=== PATIENT | male | born 1995 | race African-American/Black ===

== ENCOUNTER 2016-09-18 14:34 | Emergency (ER) | payer MEDICAID ==
[~2016-09-18] VITALS: Ht 170.2 cm; Wt 100.0 kg
[~2016-09-18 14:34] MED LIST: LORTA5 PO; Z.0.NO CURRENT MEDS
[2016-09-18 14:35] VITALS: BP 127/58; PULSE 68; RESP 15; TEMP 98.2; O2SAT 98
[2016-09-18] MEDS ORDERED: IBUPROFEN 800 MG TAB PO ONE (15:00)
--- NOTE | 2016-09-18 15:10 | PD ---
HPI . Left knee pain Chief Complaint: Injury Time Seen by Provider: 14:51 Travel History International Travel<30 days: No Contact w/Intl Traveler<30days: No Traveled to known affect area: No History of Present Illness HPI 20-year-old male with no significant past medical history here with complaints of left knee pain. Patient was at work yesterday when he was working with a electric pallet khalif that sharply jerked him, causing him to hyperextend his left knee. Patient continued working and completed his shift. He had some pain at that point, but it was not significant. He additionally went to work today and completed another shift and is now complaining of pain in the left knee rated as 7/10 without any radiation. Patient describes the pain as "mushy. " He also tells me that it's very tender to touch. It is slightly edematous. No obvious deformity. He has full range of motion of this joint. He has no other complaints. He did not injure his head. [facility] Past Medical History Medical History: Denies Significant Hx Diminished Hearing: No Immunizations Current: Yes Past Surgical History Appendectomy: Yes Social History Alcohol Use: No Tobacco Use: No Substance Use: No Allergies-Medications (Allergen,Severity, Reaction): Coded Allergies: No Known Allergies (Verified , 09/18/16) Reported Meds & Prescriptions Reported Meds & Active Scripts Active Ibuprofen 800 Mg Tab 800 Mg PO TID Review of Systems General / Constitutional: No: Fever Eyes: No: Visual changes HENT: No: Headaches Cardiovascular: No: Chest Pain or Discomfort Respiratory: No: Shortness of Breath Gastrointestinal: No: Abdominal Pain Genitourinary: No: Dysuria Musculoskeletal: Positive: Pain (left knee pain) Skin: No Rash Neurologic: No: Weakness Psychiatric: No: Depression Endocrine: No: Polydipsia Hematologic/Lymphatic: No: Easy Bruising Physical Exam Narrative GENERAL: AAO x 3, no acute distress, Well-nourished, well-developed patient. SKIN: Warm and dry. No visible rashes or bruising. HEAD: Normocephalic and atraumatic. EYES: No scleral icterus. No injection or drainage. ENT: No nasal drainage noted. Airway patent. NECK: Supple, trachea midline. No JVD. CARDIOVASCULAR: Regular rate and rhythm without murmurs, gallops, or rubs. RESPIRATORY: Breath sounds equal bilaterally. No accessory muscle use. No rhonchi or rales. GASTROINTESTINAL: Visual inspection is normal EXTREMITIES: No cyanosis. Very minimal edema to the left knee. There is no ecchymosis. There is tenderness to the patella and pain elicited with valgus and varus stress testing. Extension and flexion is normal. BACK: Nontender without obvious deformity. No CVA tenderness. PSYCH: AAO x 3, normal affect. Data Data Last Documented VS Vital Signs Date Time Temp Pulse Resp B/P Pulse Ox O2 Delivery O2 Flow Rate FiO2 09/18/16 16:08 98.1 67 16 118/67 99 09/18/16 14:52 Room Air Orders Knee, Complete (4vws) (09/18/16 14:56) Ibuprofen (Motrin) (09/18/16 15:00) ^ Luis Manuel Bandage (09/18/16 15:53) Crutches (09/18/16 15:53) MDM Medical Decision Making Medical Screen Exam Complete: Yes Emergency Medical Condition: Yes Medical Record Reviewed: Yes Differential Diagnosis knee sprain, meniscal injury, less likely knee fracture Narrative Course 20-year-old male with no significant past medical history here with complaints of left knee pain. Patient was at work yesterday when he was working with a electric pallet khalif that sharply jerked him, causing him to hyperextend his left knee. Patient continued working and completed his shift. He had some pain at that point, but it was not significant. He additionally went to work today and completed another shift and is now complaining of pain in the left knee rated as 7/10 without any radiation. Patient describes the pain as "mushy. " He also tells me that it's very tender to touch. It is slightly edematous. No obvious deformity. He has full range of motion of this joint. He has no other complaints. He did not injure his head. Patient seen and examined. He does have some point tenderness over his patella as well as pain with valgus and varus stress testing. I'll go ahead and order an x-ray to rule out any type of bony abnormality, however I doubt that we will find any acute fracture. It is possible the patient has a meniscal injury. I've explained that he will need to have outpatient follow-up regarding this injury. xray negative. Luis Manuel wrap and crutches provided. Discussed offloading. Recommend rest for several days and if pain persists to f/u with PCP. Patient verbalized understanding of instructions, questions were answered, and thanked me for their care. I advised them if their condition worsens, please return to the nearest emergency room for further care. Diagnosis Primary Impression: Knee pain, left Qualified Code: M25.562 - Acute pain of left knee Additional Impression: Sprain, knee Qualified Code: S83.92XA - Sprain of left knee, unspecified ligament, initial encounter Patient Instructions: General Instructions, Knee Pain (ED), Knee Sprain (ED) Departure Forms: Tests/Procedures, Work Release Enter return to work date: Sep 21, 2016 Additional Instructions: Rest the affected area as much as possible. Ice this area for 15-20 minutes at a time. You can do this every hour or as much as tolerated. Keep this area compressed (luis manuel bandage) as tolerated. Elevate this area. Use ibuprofen as needed for pain and inflammation. Please return to emergency department if your symptoms return or worsen. Follow up with your primary care provider. Take medications as prescribed. Med/Other Pt SpecificInfo: Prescription(s) given Scripts Ibuprofen 800 Mg [id number] Mg PO TID #21 TAB Prov:Lucia Vallejo MD 09/18/16 Disposition: 01 DISCHARGE HOME Condition: Stable January Dunlap Sep 18, 2016 15:10
--- NOTE | 2016-09-18 15:45 | RADRPT ---
EXAM DATE/TIME: 09/18/2016 15:26 [facility] COMPARISON: No previous studies available for comparison. INDICATIONS : Struck in left knee with heavy object. Pain. MEDICAL HISTORY : None. SURGICAL HISTORY : None. ENCOUNTER: Initial ACUITY: 1 day PAIN SCORE: 7/10 LOCATION: Left lateral FINDINGS: Four view examination of the left knee demonstrates no evidence of fracture or dislocation. Bony min eralization is normal. The articular surfaces are intact. The suprapatellar soft tissues have a nor mal configuration. CONCLUSION: Unremarkable examination of the left knee. Loy Lane MD on September 18, 2016 at 15:42 Board Certified Radiologist. This report was verified electronically.
[2016-09-18] MEDS ORDERED: IBUP800T23 PO (15:53)
[2016-09-18 16:00] VITALS: RESP 16
[2016-09-18 16:08] VITALS: BP 118/67; TEMP 98.1
== END 2016-09-18 16:09 | disposition home or self-care (01) ==
LOC: NEPD 14:34
DX: M25.562 Pain in left knee (principal); S83.92XA Sprain of unspecified site of left knee, initial encounter; X50.0XXA Overexertion from strenuous movement or load, initial encounter; Y93.89 Activity, other specified; Y92.9 Unspecified place or not applicable; Y99.0 Civilian activity done for income or pay
CPT/HCPCS: 73564; 99283; E0113; L1830

== ENCOUNTER 2017-04-12 18:35 | Emergency (ER) | payer SELFPAY ==
[~2017-04-12 18:35] MED LIST changes: +IBUP1TAB7 PO; -LORTA5 PO; -Z.0.NO CURRENT MEDS
[2017-04-12 18:46] VITALS: BP 126/73; PULSE 66; RESP 22; TEMP 99.6; O2SAT 99
--- NOTE | 2017-04-12 19:33 | RADRPT ---
EXAM DATE/TIME: 04/12/2017 19:14 [facility] COMPARISON: No previous studies available for comparison. INDICATIONS : Right hand laceration, broke glass cup with hand. MEDICAL HISTORY : None. SURGICAL HISTORY : None. ENCOUNTER: Initial ACUITY: 1 day PAIN SCORE: 10/10 LOCATION: Right hand, palmar surface. FINDINGS: Three view examination of the right hand demonstrates no soft tissue swelling, dislocation, or fractu re. No radiopaque foreign bodies. The carpal bones appear intact. The interphalangeal and metacarp ophalangeal joints are intact. Bony mineralization is normal. CONCLUSION: 1. No radiopaque foreign bodies observed. Lino Grigsby Jr., MD on April 12, 2017 at 19:31 Board Certified Radiologist. This report was verified electronically.
[2017-04-12] MEDS ORDERED: LIDOCAINE HCL 1% 50 ML VIAL ONE (19:49)
--- NOTE | 2017-04-12 20:15 | PD ---
HPI Chief Complaint: Laceration/Skin Injury Time Seen by Provider: 20:11 Travel History International Travel<30 days: No Contact w/Intl Traveler<30days: No Traveled to known affect area: No History of Present Illness HPI [id number] male presents for evaluation of right hand laceration. It was sustained prior to arrival when he was attempting to wash glass and the glass broke. He has a throbbing pain at the site of the laceration which is worse with movement. Denies any numbness or tingling or weakness. Last tetanus vaccination within 5 years. No other complaints. [facility] Past Medical History Medical History: Denies Significant Hx Diminished Hearing: No Immunizations Current: Yes Tetanus Vaccination: Unknown Past Surgical History Appendectomy: Yes Social History Alcohol Use: No Tobacco Use: No Substance Use: Yes (weed) Allergies-Medications (Allergen,Severity, Reaction): Coded Allergies: No Known Allergies (Verified , 09/18/16) Reported Meds & Prescriptions Reported Meds & Active Scripts Active Ibuprofen 800 Mg Tab 800 Mg PO TID Review of Systems Musculoskeletal: Positive: Pain Skin: Positive Other (positive for laceration, bleeding) Physical Exam Narrative GENERAL: Well-nourished male in no acute distress SKIN: Warm and dry. 2 cm curved laceration to the lateral right hand proximal second finger. CARDIOVASCULAR: Regular rate and rhythm. No murmur appreciated. RESPIRATORY: No accessory muscle use. Clear to auscultation. Breath sounds equal bilaterally. Musculoskeletal: Skin as noted above no tendon injury. The patient retains full flexion and extension against resistance of the right second finger. Capillary refill less than 2 seconds, distal sensation intact. NEUROLOGICAL: Awake and alert. No obvious cranial nerve deficits. Motor grossly within normal limits. Normal speech. Data Data Last Documented VS Vital Signs Date Time Temp Pulse Resp B/P (MAP) Pulse Ox O2 Delivery O2 Flow Rate FiO2 04/12/17 19:49 18 04/12/17 18:46 99.6 66 126/73 (90) 99 Room Air Orders Orders Hand, Complete ([id number]) (04/12/17 ) Lidocaine 1% Inj (50 Ml) (Xylocaine 1% I (04/12/17 19:49) MDM Medical Decision Making Medical Screen Exam Complete: Yes Emergency Medical Condition: Yes Medical Record Reviewed: Yes Differential Diagnosis Cutaneous laceration, open fracture, foreign body, neurovascular injury, tendon injury Narrative Course Laceration was repaired with sutures, he verbally consents. He will be placed in a [facility] finger splint. He is stable for discharge. Procedures Procedure Narrative LACERATION LOCATION: Right hand LENGTH: 2 cm NUMBER OF STITCHES/PHYLICIA: 8 REPAIR: The area of the laceration was prepped with Betadine and sterilely draped. The laceration was infiltrated with 1% lidocaine. The wound was copiously irrigated and explored without evidence of foreign body, tendon injury or neurovascular injury. The wound was closed using 5-0 PROLENE simple interrupted. This was a single layer repair. A sterile dressing was applied. The patient was advised to keep the dressing clean and dry. Patient tolerated the procedure well. Diagnosis Primary Impression: Laceration of right hand Qualified Codes: S61.411A - Laceration without foreign body of right hand, initial encounter Additional Instructions: Keep clean and dry for 24 hours. Then wash gently with soap and water and apply antibiotic cream twice a day. Minimize use of right hand. Follow-up in approximate 14 days for suture removal. Med/Other Pt SpecificInfo: Wound Care Disposition: DISCHARGE HOME Condition: Stable Shaan Mac Apr 12, 2017 20:14
[2017-04-12] MEDS ORDERED: LIDOCAINE HCL 1% 50 ML VIAL INFIL ONE (20:45)
== END 2017-04-12 20:51 | disposition home or self-care (01) ==
LOC: NEPD 18:35
DX: S61.411A Laceration without foreign body of right hand, initial encounter (principal); W25.XXXA Contact with sharp glass, initial encounter; Y93.G1 Activity, food preparation and clean up
CPT/HCPCS: 12001; 29130; 73130